=== PATIENT | female | born 1935 | race Caucasian/White ===

== ENCOUNTER → 2017-07-11 | Outpatient (CLI) | payer MEDICARE ==
--- NOTE | 2017-07-11 14:14 | Diagnostic Imaging Report ---
History: Headaches, memory loss. Comparison studies: None Technique: Sagittal T2; axial DWI, FLAIR, MPGR, T1, Coronal FLAIR. Intravenous contrast: None Findings: Scalp: Normal in signal . No masses . Bone marrow: Normal in signal intensity. 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 No vasogenic edema. Prominent focal signal void at the A2 segment, this could be related to calcifications versus flow artifact. Brain sulci: Mildly prominent. Ventricles: Highly prominent . No hydrocephalus . Parenchyma: Scattered T2/flair hyperintensities of the periventricular and deep white matter. Similar changes are seen in the right sosa. 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 Suprasellar region: No abnormalities. Craniocervical junction: No abnormalities. Patent foramen magnum. No Chiari one malformation. Vessels: Prominent signal voids at the P-comm region. Normal remaining flow-voids in the arteries and sinuses. Enlarged left parotid gland with restricted diffusion. IMPRESSION: 1. 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 2. Moderate chronic microvascular ischemic changes of the white matter. Mild diffuse volume loss. 3. Significantly enlarged left superficial and deep parotid gland with restricted diffusion, further evaluation with CT neck is recommended. Signed by: DR Alpesh Watkins M.D. on 07/11/2017 2:10 PM
== END ==
LOC: MRI 07:31
PROVIDERS: ATTEND Psychiatry & Neurology Neurology
DX: R51 Headache (principal); R41.3 Other amnesia; R26.9 Unspecified abnormalities of gait and mobility
CPT/HCPCS: 70551

== ENCOUNTER → 2018-05-18 | Outpatient (CLI) | payer MEDICARE ==
[~2018-05-18] MED LIST: GADOBENATE DIMEGLUMINE 1 ML IV ONE
[2018-05-18 10:49] LABS: CREATININE, SERUM 1.14 mg/dL (0.57-1.11)
--- NOTE | 2018-05-18 12:45 | Diagnostic Imaging Report ---
EXAMINATION: MRI of the brain with and without contrast HISTORY: Headache, imbalance, weakness, frequent falls, fainting, headaches, abnormal prior brain MRI. History of skin cancer and prior left neck radiation. COMPARISON: Brain MRI of 07/11/2017 TECHNIQUE: Pre-contrast: Sagittal T2; axial T1-IR, T2, MPGR, DWI, FLAIR; Post-contrast: axial and coronal T1. Intravenous contrast: 14 mL of Gadavist. IMAGE QUALITY: Adequate. FINDINGS: Extra-axial spaces: Accounting for differences in technique and measurements orientation there has not been significant interval change in previously seen approximately 2.6 x 2.8 x 3 cm (L x A-P x T) anterior cranial fossa skull base extra-axial, heterogeneous signal intensity, partially calcified medially and homogeneously enhancing mass centered along the midline and right side of the planum sphenoidale, with stable extension to the tuberculum sella. Mild associated local mass effect in the posterior subfrontal parenchymal, without abnormal signal intensity in the overlying brain. Stable mild approximately 7 mm anterior/deep midline shift to the left, mostly related to minimal tumor extension across the midline to the left. Mild associated displacement of the anterior cerebral arteries and anterior communicating artery to the left, which otherwise appear patent. Parenchyma: 1. Persistent scattered and mildly confluent periventricular and lang radiata white matter T2 and FLAIR hyperintense foci, most likely nonspecific chronic microvascular ischemic changes.. 2. No mass or hemorrhage. No acute or chronic vascular insult. Skull: No abnormal signal intensity or enhancement. Major arteries: As above, otherwise suspected flow voids. Dural sinuses: Expected flow voids present. Ventricles: No hydrocephalus or displacement. Subarachnoid spaces: No abnormal signal intensity or enhancement. Brain volume: Normal for age. Foramen magnum: No mass, Chiari malformation, or basilar invagination. Sella: No gross mass. Paranasal/mastoid sinuses: Unremarkable. Cervical spine: Partially visualized degenerative changes in the upper cervical spine with canal and foraminal narrowing. Incidental findings: Interval resolution of previously seen diffuse enlargement of the left parotid gland. IMPRESSION: 1. 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 2. Also stable moderate chronic microvascular ischemic changes. Signed by: Dr. Alina Nascimento M.D. on 05/18/2018 12:42 PM
== END ==
LOC: MRI 10:06
PROVIDERS: ATTEND Psychiatry & Neurology Neurology
DX: I67.9 Cerebrovascular disease, unspecified (principal); R41.3 Other amnesia; D32.9 Benign neoplasm of meninges, unspecified; R26.9 Unspecified abnormalities of gait and mobility
CPT/HCPCS: 36415; 70553; 82565; 84520

== ENCOUNTER → 2021-05-29 | Outpatient (CLI) | payer MEDICARE ==
[~2021-05-29] MED LIST changes: -GADOBENATE DIMEGLUMINE 1 ML IV ONE; +IOPAMIDOL 370 MG/ML 200 ML INFUS..BTL INJ ONE; +SODIUM CHLORIDE 0.9% 500ML 500 ML ONE; +SODIUM CHLORIDE 0.9% 50ML 50 ML ONE
[2021-05-29 14:05] LABS: CREATININE, SERUM 1.15 mg/dL (0.57-1.11)
== END ==
LOC: CT 13:23
PROVIDERS: ATTEND Internal Medicine Cardiovascular Disease
DX: R06.02 Shortness of breath (principal); Z85.89 Personal history of malignant neoplasm of other organs and systems
CPT/HCPCS: 36415; 71260; 82565; 84520; 96360; J7040; Q9967

== ENCOUNTER 2021-08-29 11:41 | Emergency (ER) | payer MEDICARE ==
[~2021-08-29] VITALS: Ht 154.9 cm; Wt 83.9 kg
[2021-08-29] MEDS ORDERED: SODIUM CHLORIDE 0.9% 500ML 500 ML IV ONE (12:00)
[2021-08-29 12:26] LABS: BASOPHILS % 0.4 % (0.0-1.0); EOSINOPHILS # (AUTO) 0.2 (0.0-0.4); EOSINOPHILS % 2.7 % (0.0-6.0); HEMATOCRIT 31.2 % (34.2-44.1); HEMOGLOBIN 8.9 g/dL (12.0-16.0); LYMPHOCYTES # (AUTO) 1.5 (1.0-3.2); LYMPHOCYTES % 22.6 % (18.0-39.1); MEAN CORPUSCULAR HEMOGLOBIN 21.5 pg (28-32); MEAN CORPUSCULAR HGB CONC 28.5 g/dL (31-35); MEAN CORPUSCULAR VOLUME 75.5 fL (81-99); MONOCYTES # (AUTO) 0.9 (0.2-0.8); MONOCYTES % 12.6 % (4.4-11.3); NEUTROPHILS # (AUTO) 4.1 (2.1-6.9); NEUTROPHILS % 61.4 % (38.7-80.0); PLATELET COUNT 309 x10e3/uL (140-360); RED BLOOD COUNT 4.13 x10e6/uL (3.6-5.1)
[2021-08-29 12:35] LABS: INR 1.28; PROTHROMBIN TIME 17.1 seconds (11.9-14.5)
[2021-08-29 12:36] LABS: PARTIAL THROMBOPLASTIN TIME 30.7 seconds (23.8-35.5)
[2021-08-29 12:44] LABS: ALBUMIN 3.5 g/dL (3.5-5.0); CALCIUM 8.6 mg/dL (8.4-10.2); CREATININE, SERUM 1.03 mg/dL (0.57-1.11); MAGNESIUM 2.1 MG/DL (1.3-2.1)
[2021-08-29 13:03] LABS: THYROID STIMULATING HORMONE 4.157 uIU/mL (0.350-4.940)
[2021-08-29 13:36] LABS: CLARITY,URINE SL CLOUDY (CLEAR); COLOR,URINE YELLOW (YELLOW); KETONES,URINE NEGATIVE (NEGATIVE); LEUKOCYTE ESTERASE ,URINE SMALL (NEGATIVE); NITRITE,URINE POSITIVE (NEGATIVE); PROTEIN,URINE DIPSTICK NEGATIVE (NEGATIVE); URINE UROBILINOGEN 0.2 mg/dL (0.2 - 1)
[2021-08-29 13:55] LABS: BACTERIA,URINE MANY /HPF; EPITHELIAL CELLS,URINE RARE /LPF; WBC,URINE (MAN) 21-50 /HPF (0-5)
[2021-08-29] MEDS ORDERED: HYDRALAZINE HCL 20 MG/ML VIAL IV ONE (16:45)
[2021-08-29] MEDS ORDERED: SODIUM CHLORIDE 0.9% 100 ML ONE (19:36)
[2021-08-29] MEDS ORDERED: IOPAMIDOL 370 MG/ML 100 ML INFUS..BTL INJ ONE (19:36)
== END 2021-08-29 19:40 | disposition other institution (70) ==
LOC: ER 11:48
DX: R41.82 Altered mental status, unspecified (principal); R22.0 Localized swelling, mass and lump, head; N39.0 Urinary tract infection, site not specified; F03.90 Unspecified dementia, unspecified severity, without behavioral disturbance, psychotic disturbance, mood disturbance, and anxiety; I48.91 Unspecified atrial fibrillation; F41.9 Anxiety disorder, unspecified; K21.9 Gastro-esophageal reflux disease without esophagitis; Z86.718 Personal history of other venous thrombosis and embolism
CPT/HCPCS: 36415; 70450; 70496; 71045; 80053; 81001; 82550; 82553; 83735; 83880; 84443; 84484; 85025; 85610; 85730; 87086; 87186; 93005; 99284; J0360; J0696; J7040; J7050; Q9967; U0002